=== PATIENT | female | born 1960 | race Caucasian/White ===

== ENCOUNTER → 2016-04-16 | Outpatient (CLI) | payer BC, OTHER ==
--- NOTE | 2016-04-16 12:49 | DIAGNOSTIC IMAGING REPORT ---
ULTRASOUND RIGHT VENOUS DOPP LOWER EXT UNILAT CLINICAL HISTORY: Right leg edema COMPARISON STUDY: No previous studies for comparison. FINDINGS: Real-time and color flow Doppler imaging were performed. Flow was seen within the femoral, popliteal and calf veins with no intraluminal thrombus demonstrated. The saphenous vein is patent. There are mildly prominent right inguinal lymph nodes demonstrating normal fatty anselmo. IMPRESSION: No evidence of right lower extremity DVT Electronically signed by: Fox Hammer M.D. 04/16/2016 12:48 PM Dictated Date/Time: 04/16/2016 12:47 PM
== END | disposition home or self-care (01) ==
LOC: C.ULTRBC 12:10
PROVIDERS: ATTEND Family Medicine
DX: R60.0 Localized edema (principal)